=== PATIENT | male | born 1970 | race Caucasian/White ===

== ENCOUNTER 2024-09-24 20:38 | Emergency (ER) | payer OTHER, SELFPAY ==
[2024-09-24 20:40] VITALS: BP 163/97
[2024-09-24 21:12] LABS: % Basophils 0.2 % (0-2); % Eosinophils 0.1 % (0-6); % Immature Granulocytes 0.3 % (0-0.5); % Lymphocytes 13.9 % (20.5-51.1); % Neutrophils 74.5 % (42.2-75.2); Absolute Lymphocytes 1.7 10^3/uL (1.2-3.4); Absolute Monocytes 1.4 10^3/uL (0.1-0.6); Absolute Neutrophils 9.3 10^3/uL (1.4-6.5); Hematocrit 44.3 % (39.0-52.0); Hemoglobin 15.7 g/dL (13.0-18.0); Mean Corp Hgb Conc. 35.4 g/dL (33.0-37.0); Mean Corpuscular Hgb 31.5 pg (27.0-31.0); Mean Corpuscular Volume 88.8 fL (80.0-94.0); Mean Platelet Volume 9.4 fL (7.4-10.4); Nucleated Red Blood Cells % 0 % (-); Platelet Count 219 10^3/uL (130-400); Red Blood Cell Count 4.99 10^6/uL (4.70-6.10); Red Cell Dist. Width 12.3 % (11.5-14.5); White Blood Cell Count 12.4 10^3/uL (4.8-10.8)
[2024-09-24 21:30] LABS: Troponin I < 0.012 ng/ml
[2024-09-24 21:31] LABS: ALT (SGPT) 27 U/L (0-50); AST (SGOT) 22 U/L (17-59); Albumin 4.8 g/dl (3.5-5.0); Alkaline Phosphatase 87 U/L (38-126); Blood Urea Nitrogen 16 mg/dl (9-20); Calcium 9.5 mg/dl (8.4-10.2); Carbon Dioxide 25 mmol/L (22-30); Chloride 100 mmol/L (98-107); Glucose 121 mg/dl (70-99); Potassium 4.1 mmol/L (3.5-5.1); Sodium 142 mmol/L (135-145); Total Bilirubin 0.9 mg/dl (0.2-1.3); Total Protein 7.7 g/dl (6.3-8.2); eGFR > 60.00
[2024-09-24 21:47] VITALS: BP 124/88
[2024-09-24 22:00] VITALS: BP 131/88
[2024-09-24 22:24] VITALS: BMI 25.7
--- NOTE | 2024-09-24 22:51 | ED.GENMED ---
History of Present Illness
General
Chief Complaint: Chest Pain
Source: patient and family
Exam Limitations: none
Time Seen by Provider: 09/24/24 22:16
Nursing documentation reviewed up to this point in time: agreed with
History of Present Illness
History of Present Illness:
This a pleasant 53-year-old male with a history of triple bypass surgery presents with substernal chest pain radiating to his left shoulder that began on Saturday. He was at a bar in [place] and developed symptoms after clearing his throat. He
felt a burning sensation. He had been drinking alcohol at that time. Saturday morning, he woke up with a burning sensation in his chest which is exacerbated by deep breathing. Today he had left shoulder pain with deep breath. Denies fever,
chills, nausea or vomiting. He does have a history of left main coronary artery disease with a triple bypass, diabetes. Patient states that he 'walked 5 miles' yesterday without any exacerbation of symptoms.
Past History
Past History
ED Past Medical History: Other (diverticulitis )
Social History
Personal:
Living: with family
Employment: Employed
Review of Systems
Review of Systems
Allergies reviewed?: Yes
All Other Systems: ROS reviewed and negative except as documented in HPI and ROS
Constitutional: Reports no symptoms
EENT: Reports no symptoms
Respiratory: Reports no symptoms
Cardiac: Reports no symptoms
ABD/GI: Reports no symptoms
: Reports no symptoms
Musculoskeletal: Reports no symptoms
Skin: Reports no symptoms
Neurological: Reports no symptoms
Endocrine: Reports no symptoms
Hematologic/Lymphatic: Reports no symptoms
Psychiatric: Reports no symptoms
Phy Exam
Physical Exam
Physical Exam:
Physical Exam
Vital signs and allergy list reviewed and agreed with.
GENERAL: Alert , in minimal apparent distress
EYE: pupils equal, EOMI, anicteric
NECK: Supple, no significant adenopathy. No masses. Trachea midline
ENT: Oropharynx is clear, mmm.
CARDIAC: Regular rate and rhythm . No M/R/G
LUNGS: Clear breath sounds bilaterally, no acute respiratory distress, no wheezes/rales/rhonchi
ABDOMEN: Soft, without focal tenderness, no r/g, Normal BSx4q
NEUROLOGICAL: Alert and oriented, no focal neuro deficits
SKIN: Warm and dry, skin intact.
MUSCULOSKELETAL: No edema, well perfused. Moves all 4 extremities
PSYCH: Normal and appropriate interaction.
Scores
Heart Score for Chest Pain Patients
STEMI patient?: No
History: Slightly or Non-Suspicious
ECG: Normal
Age: >45 - <65 years
Risk Factors: >/= 3 Risk Factors or History of CAD
Troponin: </= Normal Limit
Heart Score for Chest Pain Patients: 3
Heart Score Risk: 2.5% MACE over next 6 weeks
Course
Orders/Labs/Results
Orders:
Orders
09/24/24 20:39
Electrocardiogram (*1) Urgent
Reason for Study: Chest Pain
EKG- Treatment ONCE
09/24/24 20:51
Pulse Ox/spot Check [RESP] Urgent
Quantity: 1
Special Instructions: ON ROOM AIR
09/24/24 20:57
Complete Blood Count/With Diff Urgent
Comprehensive Metabolic Panel Urgent
Troponin I Urgent
09/24/24 22:40
CT Chest Pe Study Urgent
Comment:
Reason For Exam: cp after flight
09/24/24 23:43
Doxycycline [Vibramycin] 100 mg PO NOW STA
09/24/24 23:48
Ketorolac [Toradol] 15 mg IV NOW STA
Abnormal Lab Results
09/24/24
20:57
WBC 12.4 H 10^3/uL
(4.8-10.8)
MCH 31.5 H pg
(27.0-31.0)
Absolute Neuts (auto) 9.3 H 10^3/uL
(1.4-6.5)
Absolute Monos (auto) 1.4 H 10^3/uL
(0.1-0.6)
Lymphocytes % 13.9 L %
(20.5-51.1)
Monocytes % 11.0 H %
(1.7-9.3)
Glucose 121 H mg/dl
(70-99)
09/24/24 20:57
09/24/24 20:57
Vital Signs
Initial and Last Documented VS:
Initial Vital Signs
Temp Pulse Resp BP Pulse Ox
99.5 F 111 18 163/97 97
09/24/24 20:40 09/24/24 20:40 09/24/24 20:40 09/24/24 20:40 09/24/24 20:40
Last Documented Vital Signs
Temp Pulse Resp BP Pulse Ox
98.9 F 102 26 124/81 96
09/24/24 23:45 09/25/24 00:00 09/25/24 00:00 09/25/24 00:00 09/25/24 00:00
MDM/Problems Addressed
Differential Diagnosis Includes:
PE, non-STEMI, pneumonia, bronchitis,
MDM/Problems Addressed:
53-year-old male presents with chest pain after a flight.
Chronic conditions affecting care:
CABG, ACS
Chronic conditions affecting care: DM and CAD
*Critical Care Note
Total Time (30-74mins, 75-104mins- exclusive of procedures): Not Applicable
ED Attending Note
-
Portions of this chart may have been created with voice recognition software.� Occasional wrong word or��sound alike� substitutions may have occurred due to the inherent limitations of voice recognition software.
Discharge Plan
Departure
Patient Disposition: Home (Routine Discharge)
Date of Disposition: 09/24/24
Time of Disposition: 23:49
Patient with high blood pressure during this ER visit?: Yes
Condition: Good
Discharge Problem:
Pneumonia
Instructions: Pneumonia in adults, BLOOD PRESSURE
Prescriptions:
New
doxycycline monohydrate 100 mg capsule
100 mg PO BID Qty: 10 0RF
No Action
doxylamine succinate 25 mg Tablet
25 mg PO HS PRN (Reason: Sleep)
metformin 750 mg tablet extended release 24 hr
750 mg PO QPM
dapagliflozin propanediol [Farxiga] 10 mg Tablet
10 mg PO DAILY Qty: 30 0RF
Rx Instructions:
Please obtain refills from PCP/or provider managing diabetes
aspirin 81 mg Tablet,Chewable
81 mg PO DAILY Qty: 0 0RF
Rx Instructions:
Please purchase over the counter
pantoprazole 40 mg Tablet,Delayed Release (Dr/Ec)
40 mg PO DAILY Qty: 30 0RF
Rx Instructions:
GI prophylaxis with Plavix. Take for 30 days, discuss continuing/refills with PCP/Cardiology
acetaminophen 325 mg Tablet
650 mg PO Q4HPRN PRN (Reason: mild pain,headache,temp >101F ) Qty: 0 0RF
ezetimibe 10 mg Tablet
10 mg PO DAILY
atorvastatin 80 mg tablet
80 mg PO DAILY
metoprolol tartrate 50 mg tablet
25 mg PO BID
Referrals:
Manan Page MD [Family Provider] -
Activity Restrictions/Additional Instructions:
Your prescriptions were sent electronically to the pharmacy that you specified.
It was a pleasure meeting you and taking part in your care. We hope for your continued healing and wellness.
Please read discharge instructions in their entirety. However, they are for general education and may not describe your exact diagnosis at discharge. Information on your ER visit and medical conditions were discussed with you along with appropriate
follow up information...
If indicated, please take your medications as instructed and indicated on discharge paperwork.
Please schedule a follow up appointment as directed. Call to schedule an appointment
Please return to the emergency department with ANY change in, persisting, or worsening of symptoms. If any of your symptoms do not improve, or persist, or become more severe within 6-12 hours, please return to the emergency department for further
care.
Please return to the emergency department if you develop a headache, neck pain/stiffness, fever greater than 100.4F, chest pain, shortness of breath, persistent nausea, vomiting, slurred speech, difficulty walking, numbness/tingling, weakness, signs
of infection or any other symptoms that are worrisome to you.
If you have any questions or concerns please do not hesitate to call the Hospital at or E-mail me directly at [email or web address]
Interventions
Interventions:
*Risk Screen - Suicide Last Done: 09/24/24 20:40
*General Assessment Last Done: 09/24/24 20:40
*Neglect/Abuse Screening Last Done: 09/24/24 20:40
ED- Fall Risk Assessment Last Done: 09/25/24 00:10
*ED COVID-19 Vaccine History Last Done: 09/24/24 20:40
*Nursing Disposition Last Done: 09/25/24 00:10
ED- Cardiac Assessment Last Done: 09/24/24 23:10
Discharge Date and Time
Discharge Date/Time: 09/25/24 00:10
Print Language: CYMRAES
[2024-09-24 23:09] VITALS: BP 142/88
[2024-09-24] MEDS: TORADOL 15 MG IV (23:54)
[2024-09-24] MEDS: VIBRAMYCIN 100 MG PO (23:54)
[2024-09-25] VITALS: BP 124/81
== END 2024-09-25 00:10 | disposition home or self-care (01) ==
LOC: EMR 20:38
PROVIDERS: Emergency Medicine; EMERGENCY PHYSICIAN Student in an Organized Health Care Education/Training Program; FAMILY PHYSICIAN Family Medicine
DX: J18.9 Pneumonia, unspecified organism (principal); E11.9 Type 2 diabetes mellitus without complications; I25.10 Atherosclerotic heart disease of native coronary artery without angina pectoris; Z95.1 Presence of aortocoronary bypass graft
CPT/HCPCS: 99284; 96374; 71275; 80053; 84484; 85025; 93005; Q9967

== ENCOUNTER 2025-03-31 12:18 | Emergency (ER) | payer OTHER, SELFPAY ==
[2025-03-31 12:22] VITALS: BP 141/91
[2025-03-31 14:13] VITALS: BMI 25.8
[2025-03-31] MEDS: NSS 500 IV (14:13)
[2025-03-31 14:20] LABS: % Basophils 0.7 % (0-2); % Eosinophils 0.9 % (0-6); % Immature Granulocytes 0.2 % (0-0.5); % Lymphocytes 16.3 % (20.5-51.1); % Neutrophils 72.9 % (42.2-75.2); Absolute Basophils 0.1 10^3/uL (0-0.2); Absolute Eosinophils 0.1 10^3/uL (0-0.7); Absolute Lymphocytes 1.5 10^3/uL (1.2-3.4); Absolute Monocytes 0.8 10^3/uL (0.1-0.6); Absolute Neutrophils 6.5 10^3/uL (1.4-6.5); Hematocrit 42.9 % (39.0-52.0); Hemoglobin 14.6 g/dL (13.0-18.0); Mean Corpuscular Hgb 29.8 pg (27.0-31.0); Mean Corpuscular Volume 87.6 fL (80.0-94.0); Mean Platelet Volume 9.4 fL (7.4-10.4); Nucleated Red Blood Cells % 0 % (-); Platelet Count 221 10^3/uL (130-400); Red Cell Dist. Width 12.7 % (11.5-14.5); White Blood Cell Count 8.9 10^3/uL (4.8-10.8)
[2025-03-31 14:41] LABS: ALT (SGPT) 20 U/L (0-50); AST (SGOT) 18 U/L (17-59); Albumin 4.6 g/dl (3.5-5.0); Alkaline Phosphatase 79 U/L (38-126); Blood Urea Nitrogen 14 mg/dl (9-20); Calcium 9.5 mg/dl (8.4-10.2); Carbon Dioxide 25 mmol/L (22-30); Chloride 109 mmol/L (98-107); Estimated Creatinine Clearance 121 ml/min; Glucose 127 mg/dl (70-99); Potassium 4.1 mmol/L (3.5-5.1); Sodium 142 mmol/L (135-145); Total Bilirubin 0.8 mg/dl (0.2-1.3); Total Protein 7.6 g/dl (6.3-8.2); eGFR > 60.00
[2025-03-31 14:47] LABS: NT-proBNP 213 pg/ml; Troponin I < 0.012 ng/ml
[2025-03-31 15:14] LABS: Monotest Positive (Negative)
--- NOTE | 2025-03-31 15:35 | ED.GENMED ---
History of Present Illness
General
Chief Complaint: Breathing Problem
Source: patient
Exam Limitations: none
Time Seen by Provider: 03/31/25 12:49
Nursing documentation reviewed up to this point in time: agreed with
History of Present Illness
History of Present Illness:
Patient is a 54-year-old male with history of CAD s/p CABG 2022, diabetes, hyperlipidemia who presents to the emergency department with persistent cough and fatigue. Patient reports ongoing both dry/productive cough since November�although worse
over the past 2 months. Patient also reports intermittent sensation of heart palpitations/racing heartbeat and shortness of breath. He also states that he is been very fatigued. He notes subjective fevers and intermittent chills at home.
He has had a pain in his upper back for the past few months and is now noticing a pain in his throat. He denies any dysphagia.
Patient denies any exertional chest pain, hemoptysis, lower extremity swelling.
No recent travel or recent surgeries. No personal or family history of blood clots.
Patient does state that he was treated for pneumonia back in August. Over the past 2 months he has been following with his primary care regarding these persistent URI symptoms where he has had multiple courses of antibiotics for suspected
pneumonia/sinusitis.
Past History
Past History
ED Past Medical History: Other (diverticulitis )
Social History
Personal:
Living: with family
Employment: Employed
Review of Systems
Review of Systems
Allergies reviewed?: Yes
All Other Systems: ROS reviewed and negative except as documented in HPI and ROS
Phy Exam
Physical Exam
Physical Exam:
Vitals: Hypertensive, otherwise stable vital signs. Afebrile
General: Patient is in no apparent distress. Nontoxic
Skin: Warm and dry, no rashes or lesions
Head: Normocephalic, atraumatic
Eyes: Sclera nonicteric.
Throat: Protecting airway
Neck: Normal ROM, no cervical spine tenderness, no meningismus. No JVD
Cardiac: Regular rate and rhythm, no murmurs.
Pulm: No apparent respiratory distress. O2 98 on room air. Lungs clear bilaterally with frequent cough
.
Abdomen: Abdomen soft and nontender. No palpable organomegaly
Extremities: No evidence of cyanosis or edema. Palpable DP pulses bilateral
Neuro: AAOx3. Grossly intact.
Psychiatric: Normal affect.
Scores
Heart Failure Risk
Heart Failure Risk Score: Not Applicable
Course
Orders/Labs/Results
Orders:
Orders
03/31/25 12:25
Electrocardiogram (*1) Urgent
Reason for Study: Chest Pain
EKG- Treatment ONCE
03/31/25 13:26
CT Chest PE Study Urgent
Comment: hx CABG
Reason For Exam: Pleuritic chest pain, cough
0.9% Sodium Chloride 500 ml [Nss] 500 ml IV BOLUS
03/31/25 14:10
Complete Blood Count/With Diff Urgent
Comprehensive Metabolic Panel Urgent
Lyme Progressive Urgent
Comment: ADD ON
Monotest Urgent
NT-proBNP Urgent
Troponin I Urgent
03/31/25 14:24
Add On- LAB Urgent
Tests Added?: monospot
03/31/25 16:22
Add On- LAB Urgent
Tests Added?: lyme progressive
Abnormal Lab Results
03/31/25
14:10
Absolute Monos (auto) 0.8 H 10^3/uL
(0.1-0.6)
Lymphocytes % 16.3 L %
(20.5-51.1)
Chloride 109 H mmol/L
(98-107)
Glucose 127 H mg/dl
(70-99)
Monoscreen Positive A
(Negative)
03/31/25 14:10
03/31/25 14:10
Vital Signs
Initial and Last Documented VS:
Initial Vital Signs
Temp Pulse Resp BP Pulse Ox
98.0 F 100 16 141/91 98
03/31/25 12:22 03/31/25 12:22 03/31/25 12:22 03/31/25 12:22 03/31/25 12:22
Last Documented Vital Signs
Temp Pulse Resp BP Pulse Ox
98.0 F 88 16 129/94 96
03/31/25 12:22 03/31/25 17:15 03/31/25 12:22 03/31/25 17:15 03/31/25 17:46
MDM/Problems Addressed
Differential Diagnosis Includes:
Not limited to: Bronchitis, pneumonia, congestive heart failure, pleural effusion, pulmonary embolism, ACS, interstitial lung disease, etc.
MDM/Problems Addressed:
54-year-old male presenting with a few months of persistent cough associated with significant fatigue, upper back pain, intermittent shortness of breath. He has been treated with multiple rounds of PO antibiotics by PCP without significant
improvement. No clear exertional chest pain, no hemoptysis. Vitals and physical exam as above. Patient appears well on exam. Lungs are clear bilaterally. Heart regular rate rhythm. No clinical evidence of DVT on exam.
Differential broad at this time, including viral bronchitis versus other viral etiologies. Other considerations include pneumonia. Given duration of symptoms with associated dyspnea and upper back discomfort will check CTA chest to r/o PE. Will
check basic labs, viral studies, troponin.
Update: labs reviewed. No clinically significant abnormalities. Troponin negative and given symptoms have been ongoing � feel this is sufficient to rule out acute AK.
Monospot found to be positive. While this does explain some of patient symptoms including subjective fevers, significant fatigue � do not feel it adequately describbes chronic cough. Will proceed with CTA to further rule out pulmonary embolism or
other acute pulmonary process.
Update: CTA chest without acute abnormalities. Frequent cough, possibly viral in nature or post-viral reactive airway disease. No evidence of pneumonia today. Do not feel antibiotics indicated. Workup in ED reassuring with very low suspicion for
acute emergent cardio/pulmonary process. Patient remains hemodynamically stable with normal vital signs in ED. Will prescribe medrol dose pack and albuterol inhaler. Supportive care discussed as well as primary care follow up. Referral information
given for aitchbone breaker if symptoms persist as he may require further testing/imaging. Patient and patient�s comfortable with plan.
Chronic conditions affecting care:
CAD, diabetes
Acute Exacerbation and/or Progression of Chronic Illness:
Acute hyperglycemia
*Radiology
Radiology exam reviewed: radiology read reviewed
*Pulse Oximetry
Patient hypoxic: no
*EKG
Interpreted by ED Provider?: Yes
EKG Intrepretation Date: 03/31/25
Interpretation: abnormal
Comparison EKG: changes noted
Heart Rate: 92
Rate: normal
Rhythm: sinus and PAC's
[place]: left axis deviation
Interval: normal QT interval
Ischemia: non-specific ST changes
*Sales Coach Interpretation
Rate: Sales Coach- N/A
*Critical Care Note
Total Time (30-74mins, 75-104mins- exclusive of procedures): Not Applicable
Patient Management
Escalation/DeEscalation of care consider admission/obs:
Admit not indicated
ED Attending Note
-
Portions of this chart may have been created with voice recognition software.� Occasional wrong word or��sound alike� substitutions may have occurred due to the inherent limitations of voice recognition software.
Discharge Plan
Departure
Patient Disposition: Home (Routine Discharge)
Date of Disposition: 03/31/25
Time of Disposition: 16:33
Patient with high blood pressure during this ER visit?: Yes
Condition: Good
Covid-19: Not Applicable
Discharge Problem:
Cough, Mononucleosis
Instructions: Mononucleosis, Cough in adults - ED discharge instructions, BLOOD PRESSURE
Prescriptions:
New
methylprednisolone [Medrol (Mitchell)] 4 mg tablets,dose pack
See Rx Instructions .ROUTE .COMPLEX Qty: 21 0RF
Rx Instructions:
for 6 days
albuterol sulfate 90 mcg/actuation HFA aerosol inhaler
2 puff inhalation Q6H PRN (Reason: shortness of breath or wheezing) Qty: 6.7 0RF
No Action
doxylamine succinate 25 mg Tablet
25 mg PO HS PRN (Reason: Sleep)
metformin 750 mg tablet extended release 24 hr
750 mg PO QPM
dapagliflozin propanediol [Farxiga] 10 mg Tablet
10 mg PO DAILY Qty: 30 0RF
Rx Instructions:
Please obtain refills from PCP/or provider managing diabetes
aspirin 81 mg Tablet,Chewable
81 mg PO DAILY Qty: 0 0RF
Rx Instructions:
Please purchase over the counter
pantoprazole 40 mg Tablet,Delayed Release (Dr/Ec)
40 mg PO DAILY Qty: 30 0RF
Rx Instructions:
GI prophylaxis with Plavix. Take for 30 days, discuss continuing/refills with PCP/Cardiology
acetaminophen 325 mg Tablet
650 mg PO Q4HPRN PRN (Reason: mild pain,headache,temp >101F ) Qty: 0 0RF
ezetimibe 10 mg Tablet
10 mg PO DAILY
atorvastatin 80 mg tablet
80 mg PO DAILY
metoprolol tartrate 50 mg tablet
25 mg PO BID
doxycycline monohydrate 100 mg capsule
100 mg PO BID Qty: 10 0RF
Referrals:
Angelica Garnica DO [Active] - Next open appointment
Vannesa Tabor PA-C [Family Provider] - Follow up in 5-7 days
Activity Restrictions/Additional Instructions:
RETURN TO THE EMERGENCY DEPARTMENT WITH ANY FEVER, CHILLS, PRODUCTIVE COUGH, COUGHING UP BLOOD, CHEST PAIN OR SHORTNESS OF BREATH, WORSENING IN CURRENT SYMPTOMS, OR ANY OTHER CONCERNS
- As discussed�your CT scan of your chest showed no acute abnormalities. Your lab work showed no significant abnormalities.
- You were found to have mono which may be contributing to some of your symptoms. This is a virus and should resolve on its own. Get plenty of rest and stay well-hydrated. This has the ability to cause enlarging your spleen and you should be very
cautious with any activities that may put you at risk for abdominal trauma
- 2 prescriptions have been sent to your pharmacy. Take the Medrol Dosepak as prescribed. You can use the inhaler every 6 hours as needed for shortness of breath or cough.
- Follow-up with your primary care provider to ensure symptoms are improving/for further evaluation. I provided the name for a aitchbone breaker you can follow-up with as well. You may require further imaging/testing
Monitor your symptoms closely and return to the emergency department with any acute worsening/new symptoms or any other concerns
Interventions
Interventions:
*Risk Screen - Suicide Last Done: 03/31/25 12:22
*General Assessment Last Done: 03/31/25 14:14
*Neglect/Abuse Screening Last Done: 03/31/25 12:22
*ED- Fall Risk Assessment Last Done: 03/31/25 14:14
*ED COVID-19 Vaccine History Last Done: 03/31/25 14:14
*Nursing Disposition Last Done: 03/31/25 17:15
ED- Cardiac Assessment Last Done: 03/31/25 17:45
ED- Pulmonary Assessment Last Done: 03/31/25 17:46
Discharge Date and Time
Discharge Date/Time: 03/31/25 17:50
Print Language: DOMINICAN
[2025-03-31 16:40] VITALS: BP 129/94
[2025-03-31 17:15] VITALS: BP 129/94
[2025-04-01 13:11] LABS: Lyme Antibody Screen, EIA Negative (Negative)
== END 2025-03-31 17:50 | disposition home or self-care (01) ==
LOC: EMR 12:18
PROVIDERS: Physician Assistant; EMERGENCY PHYSICIAN Emergency Medicine; FAMILY PHYSICIAN Physician Assistant
DX: B27.90 Infectious mononucleosis, unspecified without complication (principal); R05.9 Cough, unspecified; E11.65 Type 2 diabetes mellitus with hyperglycemia; E78.5 Hyperlipidemia, unspecified; I25.10 Atherosclerotic heart disease of native coronary artery without angina pectoris; Z95.1 Presence of aortocoronary bypass graft
CPT/HCPCS: 96360; 99284; 71275; 80053; 83880; 84484; 85025; 86308; 86618; 93005; Q9967